=== PATIENT | female | born 1980 | race Caucasian/White ===

== ENCOUNTER 2016-12-02 11:41 | Emergency (ER) | payer MEDICAID ==
[2016-12-02] MEDS ORDERED: Sodium Chloride 0.9% 1,000 ML IV ONE ×2 (12:14→13:31)
[2016-12-02] MEDS ORDERED: Ketorolac 30 MG/ML SDV IVPUSH ONE (12:14)
[2016-12-02] MEDS ORDERED: Ondansetron 4 MG/2 ML SDV IVPUSH ONE (12:14)
--- NOTE | 2016-12-02 12:19 | EDM.PDOC ---
ED HPI GENERAL MEDICAL PROBLEM - General Chief Complaint: Headache Stated Complaint: MIGRANE Time Seen by Provider: 12/02/16 11:47 Source of Information: Reports: Patient History Limitations: Reports: No Limitations - History of Present Illness INITIAL COMMENTS - FREE TEXT/NARRATIVE: HISTORY AND PHYSICAL: History of present illness: Patient is a 36-year-old female who presents to the emergency room today with complaints of a migraine headache 2 days. Migraine headache, nausea, vomiting, photophobia, and noise sensitivity. Patient has a long-standing history of migraines which started at the age of 14. Reports that she is from [place] and her primary doctor who specializes in migraine pain control, had been using Neubain and prescribed her Imitrex for home use, which she is currently out of. Reports her last migraine headache was approximately 6 months ago. Over the past 2 days she has been using Advil, hot baths, and trying to rest in a quiet dark room without any relief. Patient reports that her last head CT was approximately 3-4 years ago, and this was reported to be normal. Denies any new or recent head injury or trauma. Patient has had a total hysterectomy, therefore no chance of . Patient does not currently have a primary health care provider as [place]. Review of systems: As per history of present illness and below otherwise all systems reviewed and negative. Past medical history: As per history of present illness and as reviewed below otherwise noncontributory. Surgical history: As per history of present illness and as reviewed below otherwise noncontributory. Social history: No reported history of drug or alcohol abuse. Family history: As per history of present illness and as reviewed below otherwise noncontributory. Physical exam: Gen.: Well-developed and well-nourished 36-year-old female. Able to speak in full sentences without shortness of breath. Resting in chair with eyes shut comfort. Alert and oriented HEENT: Atraumatic, normocephalic, pupils reactive, negative for conjunctival pallor or scleral icterus, mucous membranes moist, throat clear, neck supple, nontender, trachea midline. Lungs: Clear to auscultation, breath sounds equal bilaterally, chest nontender. Heart: S1S2, regular rate and rhythm Abdomen: Soft, nondistended, nontender. Negative for masses or hepatosplenomegaly. Negative for costovertebral tenderness. Pelvis: Stable nontender. Genitourinary: Deferred. Rectal: Deferred. Extremities: Atraumatic, negative for cords or calf pain. Neurovascular unremarkable. Neuro: Awake, alert, oriented. Cranial nerves II through XII unremarkable. Cerebellum unremarkable. Motor and sensory unremarkable throughout. Exam nonfocal. Patient received her IV Toradol, Zofran and IV fluids. Currently rating pain at an 8 out of 10. At this time we will proceed with Ativan, Benadryl, Phenergan and second liter of fluids. 1415- patient is currently rating her pain a 4 out of 10, stating she feels much better. We'll discharge patient to home. Prescription will be given for Imitrex, which she has used in the past with good relief. I did instruct her that she needs to follow-up with the primary care provider for further refills. She voices understanding and is agreeable to plan of care. Denies any further questions. Diagnostics: [] Therapeutics: IV fluid, Toradol, Zofran IV fluids (bag #2), Ativan, Benadryl, and Phenergan Impression: Migraine headache Plan: 1. Please take the Imitrex as directed. Establish care with her primary care provider for further medication refill. 2. Return to the ED as needed as discussed. Definitive disposition and diagnosis as appropriate pending reevaluation and review of above. 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, Other (see below) (Hot baths) head Pain Score (Numeric/FACES): 9 - Related Data Allergies Allergy/AdvReac Type Severity Reaction Status Date / Time No Known Allergies Allergy Verified 12/02/16 11:47 Home Meds: Home Meds SUMAtriptan [Imitrex] 0 mg PO ASDIRECTED PRN 12/02/16 [History] Topiramate [Topamax] 200 mg PO DAILY 12/02/16 [History] Past Medical History - Past Health History Medical/Surgical History: Denies 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 - Physical Exam Exam: See Below (See dictation) Course - Vital Signs Last Recorded V/S: Last Vital Signs Temp 36.1 C 12/02/16 11:41 Pulse 89 12/02/16 11:41 Resp 18 12/02/16 11:41 BP 113/80 12/02/16 11:41 Pulse Ox 99 12/02/16 11:41 - Orders/Labs/Meds Orders: Active Orders 24 hr Category Date Time Status Sodium Chloride 0.9% [Normal Saline] 1,000 ml Med 12/02/16 13:31 Active IV STAT Medication Orders Sodium Chloride (Normal Saline) 1,000 mls @ 999 mls/hr IV STAT ONE Stop: 12/02/16 14:31 Meds: Medications Generic Name Dose Route Start Last Admin Trade Name Freq PRN Reason Stop Dose Admin Sodium Chloride 1,000 mls @ 999 mls/hr 12/02/16 13:31 Normal Saline IV 12/02/16 14:31 STAT ONE Discontinued Medications Generic Name Dose Route Start Last Admin Trade Name Freq PRN Reason Stop Dose Admin Diphenhydramine HCl 25 mg 12/02/16 13:31 12/02/16 13:39 Benadryl IVPUSH 12/02/16 13:32 25 mg ONETIME ONE Administration Sodium Chloride 1,000 mls @ 999 mls/hr 12/02/16 12:14 12/02/16 13:00 Normal Saline IV 12/02/16 13:14 999 mls/hr STAT ONE Administration Ketorolac Tromethamine 30 mg 12/02/16 12:14 12/02/16 13:00 Toradol IVPUSH 12/02/16 12:15 30 mg ONETIME ONE Administration Lorazepam 1 mg 12/02/16 13:31 12/02/16 13:39 Ativan IVPUSH 12/02/16 13:32 1 mg ONETIME ONE Administration Ondansetron HCl 4 mg 12/02/16 12:14 12/02/16 13:00 Zofran IVPUSH 12/02/16 12:15 4 mg ONETIME ONE Administration Promethazine HCl 25 mg 12/02/16 13:32 12/02/16 13:39 Phenergan IM 12/02/16 13:33 25 mg ONETIME ONE Administration Departure - Departure Time of Disposition: 14:23 Disposition: Home, Self-Care 01 Clinical Impression: Migraine - Discharge Information Referrals: PCP,None [Primary Care Provider] - Forms: ED Department Discharge Additional Instructions: My general discharge The following information is given to patients seen in the emergency department who are being discharged to home. This information is to outline your options for follow-up care. We provide all patients seen in our emergency department with a follow-up referral. The need for follow-up, as well as the timing and circumstances, are variable depending upon the specifics of your emergency department visit. If you don't have a primary care physician on staff, we will provide you with a referral. We always advise you to contact your personal physician following an emergency department visit to inform them of the circumstance of the visit and for follow-up with them and/or the need for any referrals to a consulting specialist. The emergency department will also refer you to a specialist when appropriate. This referral assures that you have the opportunity for follow-up care with a specialist. All of these measure are taken in an effort to provide you with optimal care, which includes your follow-up. Under all circumstances we always encourage you to contact your private physician who remains a resource for coordinating your care. When calling for follow-up care, please make the office aware that this follow-up is from your recent emergency room visit. If for any reason you are refused follow-up, please contact the [facility] Emergency Department at and asked to speak to the emergency department charge nurse. [facility] [address] [place] [id number] 1. Please take the Imitrex as directed. Establish care with her primary care provider for further medication refill. 2. Return to the ED as needed as discussed. - My Orders Last 24 Hours: My Active Orders 12/02/16 13:31 Sodium Chloride 0.9% [Normal Saline] 1,000 ml IV STAT - Assessment/Plan Last 24 Hours: My Active Orders 12/02/16 13:31 Sodium Chloride 0.9% [Normal Saline] 1,000 ml IV STAT
[2016-12-02] MEDS ORDERED: LORazepam 2 MG/ML MDV IVPUSH ONE (13:31)
[2016-12-02] MEDS ORDERED: diphenhydrAMINE 50 MG/ML SDV IVPUSH ONE (13:31)
[2016-12-02] MEDS ORDERED: Promethazine 25 MG/ML SDV IM ONE (13:32)
== END 2016-12-02 14:40 | disposition home or self-care (01) ==
LOC: MW.ED 11:41
DX: G43.909 Migraine, unspecified, not intractable, without status migrainosus (principal); F17.210 Nicotine dependence, cigarettes, uncomplicated; Z79.899 Other long term (current) drug therapy
CPT/HCPCS: 96361; 96372; 96374; 96375; 99283; J1200; J1885; J2060; J2405; J2550; J7040; 99284

== ENCOUNTER 2017-02-01 20:06 | Emergency (ER) | payer MEDICAID ==
[2017-02-01] MEDS ORDERED: diphenhydrAMINE 50 MG/ML SDV IVPUSH ONE (20:28)
[2017-02-01] MEDS ORDERED: Metoclopramide 10 MG/2 ML SDV IV ONE (20:28)
[2017-02-01] MEDS ORDERED: Sodium Chloride 0.9% 10 ML Syringe FLUSH PRN (20:28)
[2017-02-01] MEDS ORDERED: methylPREDNISolone Sodium Succinate 125 MG/2 ML SDV IVPUSH ONE (20:28)
[2017-02-01] MEDS ORDERED: Sodium Chloride 0.9% 2.5 ML Syringe FLUSH PRN (20:28)
[2017-02-01] MEDS ORDERED: LORazepam 2 MG/ML SDV IVPUSH ONE (20:28)
[2017-02-01] MEDS ORDERED: Sodium Chloride 0.9% 1,000 ML IV ONE (20:28)
[2017-02-01] MEDS ORDERED: Ketorolac 30 MG/ML SDV IVPUSH ONE (20:29)
--- NOTE | 2017-02-01 20:32 | EDM.PDOC ---
ED HPI GENERAL MEDICAL PROBLEM - General Chief Complaint: Headache Stated Complaint: MIGRAINE Time Seen by Provider: 02/01/17 20:20 - History of Present Illness INITIAL COMMENTS - FREE TEXT/NARRATIVE: HISTORY AND PHYSICAL: History of present illness: The patient is a 28-year-old female has a long-standing history of migraines since she was 14 and used to follow with a headache specialist in [place] where she used to live but has relocated here; she states she has had a migraine for 2 days and has missed work and is here for help with the pain. She has said that this headache is typical for her starting on the right side and associated with photophobia nausea and vomiting. She's been able to keep fluids down but cannot keep her meds down which include Imitrex and Topamax. Patient denies and she has had a hysterectomy and has had no diarrhea fevers chills cough or recent trauma to her head or neck. She says that everything about this headache is classic for her and she is here just because she cannot break it. She does not have a local clinic Dr. She has no new weakness numbness or tingling and no neck or back pain. Patient says that she has had some sinus congestion and drainage and she is not sure if that triggered it to start Review of systems: As per history of present illness and below otherwise all systems reviewed and negative. Past medical history: As per history of present illness and as reviewed below otherwise noncontributory. Surgical history: As per history of present illness and as reviewed below otherwise noncontributory. Social history: No reported history of drug or alcohol abuse. Family history: As per history of present illness and as reviewed below otherwise noncontributory. Physical exam: Gen.: Well-developed well-nourished thin female who is nontoxic and vital signs reviewed by me. Patient is photophobic on my evaluation. HEENT: Atraumatic, normocephalic, pupils reactive, negative for conjunctival pallor or scleral icterus, mucous membranes moist, throat clear, neck supple, nontender, trachea midline. Lungs: Clear to auscultation, breath sounds equal bilaterally, chest nontender. Heart: S1S2, regular rate and rhythm no overt murmurs Abdomen: Soft, nondistended, nontender. Negative for masses or hepatosplenomegaly. NABS. Pelvis: Stable nontender. Genitourinary: Deferred. Rectal: Deferred. Extremities: Atraumatic, negative for cords or calf pain. Neurovascular unremarkable. Neuro: Awake, alert, oriented. Cranial nerves II through XII unremarkable. Cerebellum unremarkable. Motor and sensory unremarkable throughout. Exam nonfocal. Diagnostics: [] Therapeutics: IV fluids Toradol Ativan Reglan Benadryl and Medrol Patient is feeling much improved and no longer has any nausea or vomiting. Her pain is also improving. She says she has her own medications at home to take and she will try those now but she can tolerate oral better and we will finish the IV fluids and plan for discharge. Impression: Migraine headache with history of same Definitive disposition and diagnosis as appropriate pending reevaluation and review of above. 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: Psychiatric History: Reports: ADHD, Anxiety - Infectious Disease History Infectious Disease History: Reports: Chicken Pox - Past Surgical History GI Surgical History: Reports: Appendectomy, Cholecystectomy Female Surgical History: Reports: Section, Hysterectomy, Tubal Ligation Social & Family History - Family History Family Medical History: Noncontributory - Tobacco Use Smoking Status *Q: Current Every Day Smoker Years of Tobacco use: 20 Packs/Tins Daily: 1 - Caffeine Use Caffeine Use: Reports: Soda - Recreational Drug Use Recreational Drug Use: No ED ROS GENERAL - Review of Systems Review Of Systems: ROS reveals no pertinent complaints other than HPI. ED EXAM, GENERAL - Physical Exam Exam: See Below (See dictation) Course - Vital Signs Last Recorded V/S: Last Vital Signs Temp 36.5 C 02/01/17 20:18 Pulse 91 02/01/17 20:18 Resp 18 02/01/17 20:18 BP 108/83 02/01/17 20:18 Pulse Ox 99 02/01/17 20:18 - Orders/Labs/Meds Orders: Active Orders 24 hr Category Date Time Status Sodium Chloride 0.9% [Saline Flush] Med 02/01/17 20:28 Active 10 ml FLUSH ASDIRECTED PRN Sodium Chloride 0.9% [Saline Flush] Med 02/01/17 20:28 Active 2.5 ml FLUSH ASDIRECTED PRN Saline Lock Insert [OM.PC] Stat Oth 02/01/17 20:28 Ordered Medication Orders Sodium Chloride (Saline Flush) 10 ml FLUSH ASDIRECTED PRN PRN Reason: Keep Vein Open Sodium Chloride (Saline Flush) 2.5 ml FLUSH ASDIRECTED PRN PRN Reason: Keep Vein Open Meds: Medications Generic Name Dose Route Start Last Admin Trade Name Freq PRN Reason Stop Dose Admin Sodium Chloride 10 ml 02/01/17 20:28 Saline Flush FLUSH ASDIRECTED PRN Keep Vein Open Sodium Chloride 2.5 ml 02/01/17 20:28 Saline Flush FLUSH ASDIRECTED PRN Keep Vein Open Discontinued Medications Generic Name Dose Route Start Last Admin Trade Name Freq PRN Reason Stop Dose Admin Diphenhydramine HCl 25 mg 02/01/17 20:28 02/01/17 20:49 Benadryl IVPUSH 02/01/17 20:29 25 mg ONETIME ONE Administration Sodium Chloride 1,000 mls @ 999 mls/hr 02/01/17 20:28 02/01/17 20:49 Normal Saline IV 02/01/17 21:28 999 mls/hr STAT ONE Administration Ketorolac Tromethamine 30 mg 02/01/17 20:29 02/01/17 20:48 Toradol IVPUSH 02/01/17 20:30 30 mg ONETIME ONE Administration Lorazepam 1 mg 02/01/17 20:28 02/01/17 20:49 Ativan IVPUSH 02/01/17 20:29 1 mg ONETIME ONE Administration Methylprednisolone Sodium Succinate 125 mg 02/01/17 20:28 02/01/17 20:48 Solu-Medrol IVPUSH 02/01/17 20:29 125 mg ONETIME ONE Administration Metoclopramide HCl 10 mg 02/01/17 20:28 02/01/17 20:48 Reglan IV 02/01/17 20:29 10 mg ONETIME ONE Administration Departure - Departure Time of Disposition: 21:51 Disposition: Home, Self-Care 01 Condition: Good Clinical Impression: Migraine headache Qualifiers: Migraine type: unspecified Status migrainosus presence: without status migrainosus Intractability: not intractable Qualified Code(s): G43.909 - Migraine, unspecified, not intractable, without status migrainosus - Discharge Information Referrals: PCP,None [Primary Care Provider] - Forms: ED Department Discharge Additional Instructions: The following information is given to patients seen in the emergency department who are being discharged to home. This information is to outline your options for follow-up care. We provide all patients seen in our emergency department with a follow-up referral. The need for follow-up, as well as the timing and circumstances, are variable depending upon the specifics of your emergency department visit. If you don't have a primary care physician on staff, we will provide you with a referral. We always advise you to contact your personal physician following an emergency department visit to inform them of the circumstance of the visit and for follow-up with them and/or the need for any referrals to a consulting specialist. The emergency department will also refer you to a specialist when appropriate. This referral assures that you have the opportunity for followup care with a specialist. All of these measure are taken in an effort to provide you with optimal care, which includes your followup. Under all circumstances we always encourage you to contact your private physician who remains a resource for coordinating your care. When calling for followup care, please make the office aware that this follow-up is from your recent emergency room visit. If for any reason you are refused follow-up, please contact the [facility] emergency department at and ask to speak to the emergency department charge nurse. [facility] [address] [place] [id number] [facility] Specialty care-Neurology Professional [facility] [address] [place] [address], [address] [place] [address] These contact the clinic at 8 AM in the morning to schedule Follow-up and also contact our neurologist to get set up for a new appointment in the coming months for further treatment of your migraines. Rest push hydration and use the medications you have at home as needed. Return to ER as needed and as discussed - My Orders Last 24 Hours: My Active Orders 02/01/17 20:28 Sodium Chloride 0.9% [Saline Flush] 10 ml FLUSH ASDIRECTED PRN Sodium Chloride 0.9% [Saline Flush] 2.5 ml FLUSH ASDIRECTED PRN Saline Lock Insert [OM.PC] Stat - Assessment/Plan Last 24 Hours: My Active Orders 02/01/17 20:28 Sodium Chloride 0.9% [Saline Flush] 10 ml FLUSH ASDIRECTED PRN Sodium Chloride 0.9% [Saline Flush] 2.5 ml FLUSH ASDIRECTED PRN Saline Lock Insert [OM.PC] Stat
== END 2017-02-01 22:10 | disposition home or self-care (01) ==
LOC: MW.ED 20:06
DX: G43.909 Migraine, unspecified, not intractable, without status migrainosus (principal); F17.210 Nicotine dependence, cigarettes, uncomplicated; Z79.899 Other long term (current) drug therapy
CPT/HCPCS: 96361; 96374; 96375; 99283; J1200; J1885; J2060; J2765; J2930; J7040